=== PATIENT | female | born 2000 | race Caucasian/White ===

== ENCOUNTER 2023-09-06 19:41 | Inpatient (IN) | payer OTHER ==
[~2023-09-06] VITALS: Ht 157.5 cm; Wt 52.2 kg
[2023-09-06] MEDS ORDERED: PRENATAL TABLE1 EAC1 PO (19:45)
[2023-09-06 20:50] LABS: URINE APPEARANCE Clear; URINE BILIRRUBIN Negative (NEGATIVE); URINE COLOR Yellow; URINE GLUCOSE Negative (NEGATIVE); URINE LEUKOCYTE Negative; URINE NITRATE Negative; URINE PROTEIN Negative (NEGATIVE)
[2023-09-06 20:51] LABS: HEMOGLOBIN 12.3 g/dL (12.0-15.00); MEAN CELL VOLUME 82.6 fL (80.00-100.00); MEAN CORPUSCULAR HEMOGLOBIN 28.3 pg (27.00-32.0); MEAN CORPUSCULAR HGB CONC 34.2 g/dl (32.0-36.0); PLATELET COUNT 188 K/uL (150-450); RED BLOOD COUNT 4.36 M/uL (4.00-6.00)
[2023-09-06 20:54] LABS: URINE BACTERIA 41.5 uL (0.0-1933); URINE RBC 8.9 uL (0.0-20.8); URINE WBC 15.3 uL (0.0-23.2)
[2023-09-06 21:04] LABS: URINE BLOOD TRACE
[2023-09-06 21:08] LABS: INR < 0.93; PARTIAL THROMBOPLASTIN TIME 23.6 SECONDS (22.0-34.0); PROTHROMBIN TIME 9.4 SECONDS (9.0-11.5)
[2023-09-06 21:14] LABS: ALBUMIN 2.7 gm/dL (3.4-5.0); BILIRUBIN TOTAL 0.28 mg/dL (0.3-1.2); CALCIUM 9.1 mg/dL (8.5-10.1); CREATININE SERUM 0.52 mg/dL (0.55-1.02); GFR 148.86; GLOBULINA 3.9 G/DL (2.4-3.5); POTASSIUM 4.24 mEq/L (3.5-5.1); TOTAL PROTEIN 6.6 gm/dL (6.4-8.2)
[2023-09-24 10:09] LABS: URINE APPEARANCE Clear; URINE BILIRRUBIN Negative (NEGATIVE); URINE BLOOD Negative; URINE COLOR Yellow; URINE GLUCOSE Negative (NEGATIVE); URINE LEUKOCYTE Small; URINE NITRATE Negative; URINE PROTEIN Negative (NEGATIVE); URINE UROBILINOGEN 0.2 E.U./dl
[2023-09-24 10:14] LABS: URINE BACTERIA 307.4 uL (0.0-1933); URINE EPITHELIAL CELLS 21.6 uL (0.0-38.8); URINE WBC 18.8 uL (0.0-23.2)
== END 2023-09-27 11:35 | disposition home or self-care (01) | DRG 833 ==
LOC: OB/GYN 19:41 → LDR 19:41 → OB/GYN 09-08 17:03
PROVIDERS: Obstetrics & Gynecology; ADMIT Obstetrics & Gynecology; ATTEND Obstetrics & Gynecology
PROC: 4A1HXCZ Monitoring of Products of Conception, Cardiac Rate, External Approach (ICD-10-PCS; principal; 2023-09-06)
PROC: BY4FZZZ Ultrasonography of Third Trimester, Single Fetus (ICD-10-PCS; 2023-09-07)
PROC: BY4FZZZ Ultrasonography of Third Trimester, Single Fetus (ICD-10-PCS; 2023-09-08)
PROC: BU4CZZZ Ultrasonography of Uterus and Ovaries (ICD-10-PCS; 2023-09-08)
PROC: BY4FZZZ Ultrasonography of Third Trimester, Single Fetus (ICD-10-PCS; 2023-09-16)
PROC: BU4CZZZ Ultrasonography of Uterus and Ovaries (ICD-10-PCS; 2023-09-16)
DX: O60.03 Preterm labor without delivery, third trimester (principal); O36.8130 Decreased fetal movements, third trimester, not applicable or unspecified; Z3A.29 29 weeks gestation of pregnancy; Z20.822 Contact with and (suspected) exposure to COVID-19

== ENCOUNTER 2023-10-27 08:58 | Inpatient (IN) | payer OTHER ==
[~2023-10-27] VITALS: Ht 157.5 cm; Wt 56.7 kg
[~2023-10-27 08:58] MED LIST: PRENATAL TABLE1 EAC1 PO
[2023-10-27] MEDS ORDERED: NIFEDIPINE ER30 M1 PO (09:24)
[2023-10-27 09:40] LABS: HEMATOCRIT 34.4 % (36.0-45.00); HEMOGLOBIN 11.8 g/dL (12.0-15.00); MEAN CELL VOLUME 81.1 fL (80.00-100.00); MEAN CORPUSCULAR HEMOGLOBIN 27.8 pg (27.00-32.0); MEAN CORPUSCULAR HGB CONC 34.2 g/dl (32.0-36.0); PLATELET COUNT 176 K/uL (150-450); RED BLOOD COUNT 4.24 M/uL (4.00-6.00); RED CELL DISTRIBUTION WIDTH 13.7 % (11.5-14.5)
[2023-10-27 09:41] LABS: URINE APPEARANCE Clear; URINE BILIRRUBIN Negative (NEGATIVE); URINE BLOOD Negative; URINE COLOR Yellow; URINE GLUCOSE Negative (NEGATIVE); URINE LEUKOCYTE Small; URINE NITRATE Negative; URINE PROTEIN Trace (NEGATIVE)
[2023-10-27 09:45] LABS: URINE EPITHELIAL CELLS 69.5 uL (0.0-38.8)
[2023-10-27 10:03] LABS: INR < 0.93; PARTIAL THROMBOPLASTIN TIME 25.2 SECONDS (22.0-34.0); PROTHROMBIN TIME 9.5 SECONDS (9.0-11.5)
[2023-10-27 10:07] LABS: ALBUMIN 2.3 gm/dL (3.4-5.0); BILIRUBIN TOTAL 0.19 mg/dL (0.3-1.2); CREATININE SERUM 0.55 mg/dL (0.55-1.02); GFR 139.53; GLOBULINA 3.6 G/DL (2.4-3.5); POTASSIUM 4.35 mEq/L (3.5-5.1); TOTAL PROTEIN 5.9 gm/dL (6.4-8.2)
[2023-10-27 11:12] LABS: URINE RBC 0.5 uL (0.0-20.8)
[2023-10-27 15:33] LABS: ABG PH 7.276 (7.35-7.45); ABG pCO2 48.5 mmHg (35-45)
[2023-10-27 15:34] LABS: ABG PO2 35.4 mmHg (80-100); BICARBONATE 22.1 mmol/l (23-25); Tco2 23.6 mmol/l; o2 21 %
[2023-10-27 18:52] LABS: HEMOGLOBIN 11.8 g/dL (12.0-15.00); MEAN CELL VOLUME 81.6 fL (80.00-100.00); MEAN CORPUSCULAR HEMOGLOBIN 27.5 pg (27.00-32.0); MEAN CORPUSCULAR HGB CONC 33.7 g/dl (32.0-36.0); PLATELET COUNT 166 K/uL (150-450); RED BLOOD COUNT 4.29 M/uL (4.00-6.00); RED CELL DISTRIBUTION WIDTH 13.4 % (11.5-14.5)
== END 2023-10-29 14:52 | disposition home or self-care (01) | DRG 807 ==
LOC: OB/GYN 08:58 → LDR 08:58 → OB/GYN 14:18
PROVIDERS: ADMIT Obstetrics & Gynecology; ATTEND Obstetrics & Gynecology
PROC: 10E0XZZ Delivery of Products of Conception, External Approach (ICD-10-PCS; principal; 2023-10-27)
PROC: 0W8NXZZ Division of Female Perineum, External Approach (ICD-10-PCS; 2023-10-27)
PROC: 4A1HXCZ Monitoring of Products of Conception, Cardiac Rate, External Approach (ICD-10-PCS; 2023-10-27)
DX: O60.14X0 Preterm labor third trimester with preterm delivery third trimester, not applicable or unspecified (principal); Z37.0 Single live birth; Z3A.36 36 weeks gestation of pregnancy; Z20.822 Contact with and (suspected) exposure to COVID-19

== ENCOUNTER 2025-01-20 18:01 | Emergency (ER) | payer OTHER ==
[~2025-01-20] VITALS: Ht 162.6 cm; Wt 55.3 kg
[~2025-01-20 18:01] MED LIST changes: +NIFEDIPINE ER30 M1 PO
[2025-01-20] MEDS ORDERED: CLEOCIN HCL150 MG PO (19:21)
== END 2025-01-20 20:24 | disposition home or self-care (01) ==
LOC: ER 18:03
DX: N75.8 Other diseases of Bartholin's gland (principal); Z91.013 Allergy to seafood; J45.909 Unspecified asthma, uncomplicated